=== PATIENT | female | born 1980 | race Caucasian/White ===

== ENCOUNTER → 2019-09-26 | Outpatient (CLI) | payer OTHER ==
--- NOTE | 2019-09-26 09:32 | US ---
EXAMINATION TYPE: US pelvic complete DATE OF EXAM: 09/26/2019 COMPARISON: NONE CLINICAL HISTORY: N92.1 Excessive and frequent menstruation with irr. TECHNIQUE: Transabdominal sonographic images of the pelvis were acquired. Patient did not want trans vaginal ultrasound due to bleeding Date of LMP: Patient states she has been bleeding for 12 weeks EXAM MEASUREMENTS: Uterus: 6.6 x 3.8 x 4.1 cm Endometrial Stripe: 0.6 cm Right Ovary: 2.2 x 1.6 x 1.2 cm Left Ovary: 2.5 x 2.1 x 1.6 cm 1. Uterus: Retroverted slightly heterogenous 2. Endometrium: wnl 3. Right Ovary: Follicle visualized, wnl 4. Left Ovary: Follicle visualized, wnl 5. Bilateral Adnexa: wnl 6. Posterior cul-de-sac: Tiny amount of free fluid visualized IMPRESSION: Endometrial thickness is within normal limits measuring 0.6 cm. Physiologic follicular ch anges of the ovaries were seen. Uterus is slightly heterogenous posteriorly and small leiomyoma is po ssible however patient declined transvaginal imaging for further detail at this time.
== END | disposition home or self-care (01) ==
LOC: RADUSWWP 07:16
PROVIDERS: ATTEND Family Medicine
DX: N85.8 Other specified noninflammatory disorders of uterus (principal); N92.1 Excessive and frequent menstruation with irregular cycle
CPT/HCPCS: 76856

== ENCOUNTER → 2020-09-12 | Outpatient (CLI) | payer OTHER ==
--- NOTE | 2020-09-12 10:04 | US ---
EXAMINATION TYPE: US transvaginal DATE OF EXAM: 09/12/2020 COMPARISON: US 09/26/2019 CLINICAL HISTORY: N93.8 disfunctional utrine bleeding. TECHNIQUE: Transvaginal (TV). Date of LMP: unknown, patient states cycles are not regular. EXAM MEASUREMENTS: Uterus: 7.2 x 4.3 x 5.47 cm Endometrial Stripe: 0.6 cm Right Ovary: 2.9 x 1.5 x 1.9 cm Left Ovary: 3.2 x 2.6 x 3.8 cm 1. Uterus: Retroverted wnl 2. Endometrium: measures 0.6 cm 3. Right Ovary: wnl 4. Left Ovary: complex lesion measures 1.9 x 1.4 x 2.2 cm 5. Bilateral Adnexa: wnl 6. Posterior cul-de-sac: moderate amount of free fluid IMPRESSION: 1. Complex left ovarian lesion measuring 2.2 cm. Differential diagnosis would include a hemorrhagic c yst or dermoid. Follow-up to resolution is recommended in 6 weeks with follow-up exam to exclude othe r etiologies including ovarian masses.
== END | disposition home or self-care (01) ==
LOC: RADUSWWP 09:30
PROVIDERS: ATTEND Obstetrics & Gynecology
DX: N83.8 Other noninflammatory disorders of ovary, fallopian tube and broad ligament (principal)
CPT/HCPCS: 76830

== ENCOUNTER → 2020-10-11 | Outpatient (CLI) | payer OTHER ==
--- NOTE | 2020-10-11 13:23 | MR ---
PRE AND POSTCONTRAST ENHANCED MRI OF THE BRAIN: CLINICAL HISTORY: Headache CONTRAST: Gadavist 7 mL Multiplanar and multispin-echo imaging of the brain was performed both before and after the administr ation of contrast. The ventricles, basal cisterns and sulci overlying the cerebral convexities are within normal limits. There is no evidence for midline shift or mass effect. Acute intracranial hemorrhage or extra-axial collection is not evident. There are no abnormal areas of increased or decreased signal intensity within the brain parenchyma. Following contrast administration, there is no evidence for pathologic enhancement or enhancing mass. The paranasal sinuses and mastoid air cells are well-aerated. IMPRESSION: Unremarkable pre and postcontrast enhanced MRI of the brain.
== END | disposition home or self-care (01) ==
LOC: RADMRIMAIN 08:46
PROVIDERS: ATTEND Family Medicine
DX: R51.9 Headache, unspecified (principal)
CPT/HCPCS: 70553; A9585

== ENCOUNTER → 2020-10-31 | Outpatient (CLI) | payer OTHER ==
--- NOTE | 2020-10-31 14:22 | US ---
EXAMINATION TYPE: US transvaginal DATE OF EXAM: 10/31/2020 COMPARISON: 09/12/2020 CLINICAL HISTORY: 40-year-old female N83.0 Left ovarian cyst follow-up TECHNIQUE: Transvaginal sonographic images of the pelvis were acquired. Date of LMP: 10/20/2020 FINDINGS: EXAM MEASUREMENTS: Uterus: 7.9 x 4.1 x 5.0 cm Endometrial Stripe: 0.8 cm Right Ovary: 3.3 x 1.9 x 2.1 cm Left Ovary: 2.6 x 1.4 x 1.4 cm 1. Uterus: Anteverted. Heterogeneous myometrium. 8 mm cervical nabothian cysts along the left late ral aspect may have an internal septation and some nodularity can be reassessed in 8-10 weeks. Not se en previously. Prominent vessels anterior/right uterus 2. Endometrium: wnl 3. Right Ovary: Irregular/crenulated hypoechoic lesion= 1.8 x 1.6 x 1.9 cm 4. Left Ovary: Within normal limits. The 2.2 cm lesion visualized previously has resolved. 5. Bilateral Adnexa: wnl 6. Posterior cul-de-sac: wnl IMPRESSION: 1. The previous left ovarian lesion has resolved. Interval development of a crenulated 1.9 cm corpus luteum on the right. 2. Interval development of an 8 mm left sided cervical nabothian cyst that demonstrates some internal complexity with a septation and some nodularity. Follow-up in 8-10 weeks to reassess. 3. Some prominent vascularity along the right anterior aspect of the uterus could represent parauteri ne varices/pelvic congestion syndrome. Clinically correlate.
== END | disposition home or self-care (01) ==
LOC: RADUSWWP 12:12
PROVIDERS: ATTEND Obstetrics & Gynecology
DX: N83.11 Corpus luteum cyst of right ovary (principal); N88.8 Other specified noninflammatory disorders of cervix uteri; N83.209 Unspecified ovarian cyst, unspecified side
CPT/HCPCS: 76830; 86304

== ENCOUNTER → 2023-02-08 | Outpatient (CLI) | payer OTHER ==
--- NOTE | 2023-02-09 17:07 | MM ---
Reason for Exam: Screening (asymptomatic). Baseline mammogram. Patient History: Menarche at age 14. First Full-Term at age 31. Last menstrual period: 02/06/2023 Risk Values: Eunice 5 year model risk: 0.6%. NCI Lifetime model risk: 11.1%. Prior Study Comparison: Patient's first Mammogram. Tissue Density: The breast tissue is heterogeneously dense. This may lower the sensitivity of mammography. Findings: Analyzed By CAD. Pattern appears symmetrical. No suspicious groups of microcalcifications, spiculated or lobular masses, architectural distortion or other secondary signs of malignancy are mammographically apparent. Overall Assessment: Benign, BI-RAD 2 Management: Screening Mammogram of both breasts in 1 year. A negative mammogram report should not preclude additional follow up of suspicious palpable abnormalities. Patient should continue monthly self breast exam. A clinical breast exam by your physician is recommended on an annual basis and results should be correlated with mammographic findings. Electronically signed and approved by: Zafar Torres D.O. Radiologis
== END | disposition home or self-care (01) ==
LOC: RADMAMWWP 16:44
PROVIDERS: ATTEND Family Medicine
DX: Z12.31 Encounter for screening mammogram for malignant neoplasm of breast (principal)
CPT/HCPCS: 77063; 77067

== ENCOUNTER → 2024-11-08 | Outpatient (CLI) | payer BC ==
--- NOTE | 2024-11-08 16:28 | US ---
EXAMINATION TYPE: US pelvis complete transvag DATE OF EXAM: 11/08/2024 COMPARISON: 10/31/2020 CLINICAL INDICATION: Female, 44 years old with history of E28.2 POLYCYSTIC OVARIAN SYNDROME; Irregula r menses TECHNIQUE: Transvaginal (TV) and Transabdominal (TA) . Transabdominal grayscale sonographic images of the pelvis were acquired. Transvaginal sonographic im ages were medically necessary to better assess the following anatomy: Doppler imaging: Not performed. FINDINGS: Date of LMP: 11/03/2024, EXAM MEASUREMENTS: Uterus: 7.4 x 5.0 x 4.0 cm Endometrial Stripe: 0.6 cm Right Ovary: 3.7 x 1.1 x 1.7 cm Left Ovary: 3.0 x 2.3 x 1.5 cm 1. Uterus: Retroverted Heterogenous. Echogenic left lesion - 1.5 x 1.7 x 1.5 cm 2. Endometrium: wnl 3. Right Ovary: multiple nonshadowing echogenic foci 4. Left Ovary: follicles 5. Bilateral Adnexa: free fluid adjacent to right ovary 6. Posterior cul-de-sac: free fluid IMPRESSION: 1. No evidence for acute process. 2. Uterine fibroid. 3. Endometrium within normal limits for thickness. 4. Right ovarian calculi suggested. [facility], , 11/08/2024 4:26 PM
== END | disposition home or self-care (01) ==
LOC: RADUSWWP 15:38
PROVIDERS: ATTEND Family Medicine
DX: E28.2 Polycystic ovarian syndrome (principal); D25.9 Leiomyoma of uterus, unspecified
CPT/HCPCS: 76830; 76856